=== PATIENT | female | born 1995 | race Caucasian/White ===

== ENCOUNTER 2022-03-03 18:56 | Emergency (ER) | payer OTHER, SELFPAY ==
[2022-03-03 19:22] VITALS: BP 124/80; PULSE 93; RESP 18; TEMP 36.6; O2SAT 100
--- NOTE | 2022-03-03 19:35 | ED.EYEPROB ---
HPI - Eye Problem General Chief complaint: Eye Problems Stated complaint: rt eye irritation Time Seen by Provider: 03/03/22 19:35 Source: patient Mode of arrival: ambulatory Limitations: no limitations History of Present Illness HPI Narrative: 26-year-old female presents with pain, redness to right eye with sensitivity to light starting this morning. Does not were contacts. Sexually active with boyfriend last night. Visiting from out of town and had to find privacy in attic on a dirty mattress. States dirt flew into her eye. All systems reviewed and negative except as noted above. Related Data Home Medications Medication Instructions Recorded Confirmed insulin glargine 100 unit/mL (3 See Rx Instructions .Route .COMPLEX 03/03/22 03/03/22 mL) subcutaneous pen (Basaglar KwikPen U-100 Insulin) insulin lispro 100 unit/mL 200 unit subcut DAILY 03/03/22 03/03/22 subcutaneous pen (Humalog KwikPen (U-100) Insulin) pen needle, diabetic 31 gauge x 03/03/22 03/03/2206/11 (Comfort EZ Pen Eclectic) Allergies Allergy/AdvReac Type Severity Reaction Status Date / Time No Known Allergies Allergy Verified 03/03/22 19:03 Review of Systems Review of Systems: CONSTITUTIONAL: Denies fever, chills, or sweats. EYES: Denies visual changes . Reports redness, pain, photophobia. Denies discharge. ENT: Denies rhinorrhea, congestion, sore throat, or otalgia. CARDIOVASCULAR: Denies chest pain, palpitations, or edema. RESPIRATORY: Denies cough or dyspnea. GASTROINTESTINAL: Denies abdominal pain, nausea, vomiting, or diarrhea. GENITOURINARY: Denies dysuria or hematuria. SKIN: Denies rash or itching. MUSCULOSKELETAL: Denies back pain, joint pain, or myalgia. NEUROLOGIC: Denies headache, numbness, or weakness. PSYCHIATRIC: Denies anxiety or depression. All other systems reviewed are negative, except as documented in HPI. PMFSH Comments At time of signature, agree with nursing past medical, surgical, social and family history. There is no relevant family history pertinent to the presenting complaint. Exam Narrative: GENERAL: This is a well-nourished, well-developed patient, in no apparent distress. HEAD: normocephalic, atraumatic. EYES: PERRL. right Sclera erythematous. Corneal abrasion noted under Wood's lamp. Vision is grossly intact. EARS: External ears normal NOSE: External nose normal NECK: Neck supple, non-tender without lymphadenopathy, masses or thyromegaly. CARDIOVASCULAR: Regular rate and rhythm without murmurs, gallops, or rubs. RESPIRATORY: Clear to auscultation. Breath sounds equal bilaterally. No wheezes, rales, or rhonchi. SKIN: warm, Dry, intact with no suspicious lesions or rash, good texture and turgor. NEURO: awake, alert, and oriented to person, place and time. There were no obvious focal neurologic abnormalities. EXTREMITIES: No joint tenderness, effusion, or edema noted. Eyes: Eyes/upper lids images: 1. corneal abrasion 2. corneal abrasion Course Course Level of Care: Express Care Visit Vital Signs Vital signs: Vital Signs Temperature 36.6 C 03/03/22 19:22 Pulse Rate 93 03/03/22 19:22 Respiratory Rate 18 03/03/22 19:22 Blood Pressure 124/80 03/03/22 19:22 Pulse Oximetry 100 03/03/22 19:22 Oxygen Delivery Room Air 03/03/22 19:22 Temperature 36.6 C 03/03/22 19:22 Pulse Rate 93 03/03/22 19:22 Respiratory Rate 18 03/03/22 19:22 Blood Pressure 124/80 03/03/22 19:22 Pulse Oximetry 100 03/03/22 19:22 Oxygen Delivery Room Air 03/03/22 19:22 reviewed Procedures Other Procedure Procedure 1: Other Procedure: 1 drop tetracaine right eye, 1 flare seen strep. Corneal abrasion noted under Wood's lamp. Irrigated with saline. MDM - Eye Problem MDM Narrative Medical decision making narrative: Patient is aware of diagnosis, understands and agrees to treatment plan. Anticipatory guidance given. Patient agrees to follow-u
== END 2022-03-03 19:45 | disposition home or self-care (01) ==
PROVIDERS: Emergency Provider Nurse Practitioner Family
DX: S05.01XA Injury of conjunctiva and corneal abrasion without foreign body, right eye, initial encounter (principal); X58.XXXA Exposure to other specified factors, initial encounter
CPT/HCPCS: 99213; A9270; G0463